=== PATIENT | female | born 1970 | race Caucasian/White ===

== ENCOUNTER → 2017-03-06 | Outpatient (CLI) | payer BC ==
[~2017-03-06] MED LIST: ADVIL200 MG PO; ALLERGY SHOT IM; LIPITOR40 MG PO; SINGULAIR10 MG PO
== END | disposition disaster alternative care site (69) ==
LOC: GBCOE 06:59
DX: Z12.31 Encounter for screening mammogram for malignant neoplasm of breast (principal)
CPT/HCPCS: G0202